=== PATIENT | male | born 1995 | race Caucasian/White ===

== ENCOUNTER 2019-01-20 14:18 | Outpatient (CLI) | payer OTHER ==
[~2019-01-20 14:18] MED LIST: Gadobenate Dimeglumine 529 MG/1 ML (20ML VIAL) ONE
--- NOTE | 2019-01-20 16:58 | MRI ---
MRI OF THE ABDOMEN WITHOUT AND WITH CONTRAST: 01/20/19 COMPARISON: Report from abdominal ultrasound from outside hospital, 01/02/19. HISTORY: Possible lesion seen in upper pole of the right kidney on prior ultrasound. TECHNIQUE: Multiplanar and multisequence MRI images were obtained of the abdomen without and with contrast. FINDINGS: The liver, gallbladder, kidneys, adrenal glands, spleen, and pancreas are unremarkable. No cyst or so lid mass is seen in the right kidney. No abdominal lymphadenopathy seen. No marrow signal abnormality is present. IMPRESSION: Normal MRI of the abdomen. POS: [facility]
== END 2019-01-20 14:19 | disposition home or self-care (01) ==
LOC: SCSMRI 14:18
DX: N28.9 Disorder of kidney and ureter, unspecified (principal)
CPT/HCPCS: 74183; A9577